=== PATIENT | female | born 1990 | race Caucasian/White ===

== ENCOUNTER 2018-09-14 23:11 | Inpatient (IN) | payer OTHER, MEDICAID ==
[2018-09-15 00:44] LABS: RUPTURE FETAL MEMBRANES POSITIVE (NEGATIVE)
[2018-09-15 00:46] LABS: ADD UMIC NO; UR ASCORBIC ACID NEGATIVE (NEGATIVE); UR BACTERIA FEW /HPF (NONE SEEN); UR BILIRUBIN (Dip) NEGATIVE (NEGATIVE); UR BLOOD (Dip) NEGATIVE (NEGATIVE); UR CLARITY CLEAR (CLEAR); UR COLOR YELLOW (YELLOW); UR GLUCOSE (Dip) NEGATIVE (NEGATIVE); UR KETONES (Dip) NEGATIVE (NEGATIVE); UR LEUKOCYTE ESTERASE (Dip) NEGATIVE Leu/ul (NEGATIVE); UR MUCUS FEW /HPF (NONE SEEN); UR NITRITE (Dip) NEGATIVE (NEGATIVE); UR RBC 0 /HPF (0-5); UR SPECIFIC GRAVITY (Dip) 1.012 (1.003-1.030); UR TOTAL PROTEIN (Dip) NEGATIVE (NEGATIVE); UR UROBILINOGEN (Dip) NEGATIVE (NEGATIVE); UR WBC 0 /HPF (0-5)
[2018-09-15] MEDS ORDERED: MAGNESIUM SULFATE 20 GM/500 ML 500 ML IV (00:54)
[2018-09-15 01:30] LABS: ADD MAN DIFF? NO
[2018-09-15 01:32] LABS: WHITE BLOOD COUNT 9.9 10^3/ul (4.8-10.8)
[2018-09-15 01:32] LABS: BASOPHILS % 0.3 % (0.0-2.0); EOSINOPHILS # 0.1 10^3/ul (0.0-0.5); EOSINOPHILS % 0.9 % (0.0-7.0); HEMATOCRIT 31.5 % (37.0-47.0); HEMOGLOBIN 11.2 g/dl (12.0-16.0); LYMPHOCYTES # 2.1 10^3/ul (0.8-2.9); LYMPHOCYTES % 20.7 % (15.0-51.0); MEAN CORPUSCULAR HEMOGLOBIN 32.8 pg (29.0-33.0); MEAN CORPUSCULAR HGB CONC 35.6 g/dl (32.0-37.0); MEAN CORPUSCULAR VOLUME 92.4 fl (82.0-101.0); MEAN PLATELET VOLUME 10.8 fl (7.4-10.4); MONOCYTE # 0.8 10^3/ul (0.3-0.9); MONOCYTES % 7.5 % (0.0-11.0); NEUTROPHIL # 6.9 10^3/ul (1.6-7.5); NEUTROPHILS % 69.8 % (39.0-77.0); PLATELET COUNT 148 10^3/UL (140-415); RED BLOOD COUNT 3.41 10^6/ul (4.20-5.40)
[2018-09-15] MEDS: BETAMET NA PHOS/AC(6 MG/ML) 2 ML INJ SYG IM (01:48)
[2018-09-15] MEDS: AZITHROMYCIN 500 MG TAB PO (01:48)
[2018-09-15 01:49] LABS: ALANINE AMINOTRANSFERASE 13 IU/L (13-69); ALBUMIN 3.4 g/dl (3.3-4.9); ALBUMIN/GLOBULIN RATIO 0.94; ALKALINE PHOSPHATASE 136 IU/L (42-121); ANION GAP 7 (5-13); ASPARTATE AMINO TRANSFERASE 14 IU/L (15-46); BILIRUBIN,INDIRECT 0.3 mg/dl (0-1.1); BILIRUBIN,TOTAL 0.3 mg/dl (0.2-1.3); BLOOD UREA NITROGEN 9 mg/dl (7-20); CARBON DIOXIDE 24 mmol/L (21-31); CHLORIDE 109 mmol/L (97-110); CREATININE 0.52 mg/dl (0.44-1.00); Estimated GFR > 60 mL/min (>60); GLUCOSE 99 mg/dl (70-220); POTASSIUM 3.7 mmol/L (3.5-5.1); SODIUM 140 mmol/L (135-144)
[2018-09-15] MEDS: AMPICILLIN 2 GM/NS (PMX) 100 ML IV (02:01)
[2018-09-15] MEDS: LACTATED RINGER'S 1,000 ML IV ×2 (02:02→15:16)
[2018-09-15] MEDS: MAGNESIUM SULFATE 4 GM/100 ML 100 ML IV (02:03)
[2018-09-15 02:06] LABS: CALCIUM 8.7 mg/dl (8.4-10.2)
[2018-09-15] MEDS: MAGNESIUM SULFATE 20 GM/500 ML 500 ML IV ×3 (02:29→20:55)
[2018-09-15] MEDS: AMPICILLIN 1 GM/NS (PMX) 50 ML IV ×5 (06:00→21:58)
[2018-09-15 07:10] LABS: MAGNESIUM 4.4 mg/dl (1.7-2.5)
[2018-09-15] MEDS: PRENATAL VITAMIN PO (09:16)
[2018-09-15] MEDS: ACETAMINOPHEN 325 MG TAB PO ×4 (09:16→21:58)
[2018-09-15] MEDS: AZITHROMYCIN 250 MG TAB PO (09:22)
[2018-09-15 18:33] LABS: MAGNESIUM 5.3 mg/dl (1.7-2.5)
[2018-09-16 01:08] LABS: MAGNESIUM 5.3 mg/dl (1.7-2.5)
[2018-09-16] MEDS: BETAMET NA PHOS/AC(6 MG/ML) 2 ML INJ SYG IM (01:49)
[2018-09-16] MEDS: AMPICILLIN 1 GM/NS (PMX) 50 ML IV ×6 (01:49→21:30)
[2018-09-16] MEDS: LACTATED RINGER'S 1,000 ML IV ×2 (04:13→17:46)
[2018-09-16] MEDS: MAGNESIUM SULFATE 20 GM/500 ML 500 ML IV (06:54)
[2018-09-16] MEDS: PRENATAL VITAMIN PO (10:17)
[2018-09-16] MEDS: AZITHROMYCIN 250 MG TAB PO (10:34)
[2018-09-17] MEDS: AMPICILLIN 1 GM/NS (PMX) 50 ML IV ×6 (01:46→21:03)
[2018-09-17] MEDS: LACTATED RINGER'S 1,000 ML IV ×3 (04:28→23:03)
[2018-09-17] MEDS: PRENATAL VITAMIN PO (09:06)
[2018-09-17] MEDS: AZITHROMYCIN 250 MG TAB PO (09:26)
[2018-09-18] MEDS: AMPICILLIN 1 GM/NS (PMX) 50 ML IV ×6 (00:55→21:19)
[2018-09-18] MEDS: PRENATAL VITAMIN PO (08:05)
[2018-09-18] MEDS: LACTATED RINGER'S 1,000 ML IV ×2 (09:31→17:26)
[2018-09-18 10:05] LABS: ADD MAN DIFF? NO
[2018-09-18 10:10] LABS: BASOPHILS % 0.3 % (0.0-2.0); EOSINOPHILS # 0.1 10^3/ul (0.0-0.5); EOSINOPHILS % 0.6 % (0.0-7.0); HEMOGLOBIN 11.7 g/dl (12.0-16.0); LYMPHOCYTES # 2.4 10^3/ul (0.8-2.9); LYMPHOCYTES % 26.2 % (15.0-51.0); MEAN CORPUSCULAR HEMOGLOBIN 32.1 pg (29.0-33.0); MEAN CORPUSCULAR HGB CONC 33.4 g/dl (32.0-37.0); MEAN CORPUSCULAR VOLUME 95.9 fl (82.0-101.0); MEAN PLATELET VOLUME 11.1 fl (7.4-10.4); MONOCYTE # 0.5 10^3/ul (0.3-0.9); MONOCYTES % 5.4 % (0.0-11.0); NEUTROPHIL # 6.1 10^3/ul (1.6-7.5); PLATELET COUNT 152 10^3/UL (140-415); RED BLOOD COUNT 3.65 10^6/ul (4.20-5.40); RED CELL DISTRIBUTION WIDTH 13.3 % (11.5-14.5)
[2018-09-18 10:10] LABS: WHITE BLOOD COUNT 9.3 10^3/ul (4.8-10.8)
[2018-09-18] MEDS: AZITHROMYCIN 250 MG TAB PO (10:10)
[2018-09-19] MEDS: AMPICILLIN 1 GM/NS (PMX) 50 ML IV ×6 (00:56→21:13)
[2018-09-19] MEDS: LACTATED RINGER'S 1,000 ML IV ×2 (02:13→10:02)
[2018-09-19] MEDS: PRENATAL VITAMIN PO (08:59)
[2018-09-19] MEDS: AZITHROMYCIN 250 MG TAB PO (10:02)
[2018-09-20] MEDS: AMPICILLIN 1 GM/NS (PMX) 50 ML IV ×6 (01:06→20:34)
[2018-09-20] MEDS: LACTATED RINGER'S 1,000 ML IV ×5 (03:27→18:31)
[2018-09-20] MEDS: PRENATAL VITAMIN PO (09:08)
[2018-09-20] MEDS: AZITHROMYCIN 250 MG TAB PO (09:08)
[2018-09-20] MEDS ORDERED: CARBOPROST 250 MCG INJ IM (10:30)
[2018-09-20] MEDS ORDERED: METHYLERGONOVINE 0.2 MG INJ IM (10:30)
[2018-09-20] MEDS ORDERED: OXYTOCIN 30 UNITS/LR 500 ML IV (10:30)
[2018-09-20] MEDS ORDERED: MISOPROSTOL 200 MCG TAB PR ×2 (10:30→19:00)
[2018-09-20 11:08] LABS: ADD MAN DIFF? NO
[2018-09-20 11:11] LABS: BASOPHILS % 0.2 % (0.0-2.0); EOSINOPHILS # 0.1 10^3/ul (0.0-0.5); EOSINOPHILS % 0.6 % (0.0-7.0); HEMATOCRIT 32.8 % (37.0-47.0); HEMOGLOBIN 11.4 g/dl (12.0-16.0); LYMPHOCYTES # 1.8 10^3/ul (0.8-2.9); LYMPHOCYTES % 11.4 % (15.0-51.0); MEAN CORPUSCULAR HEMOGLOBIN 32.7 pg (29.0-33.0); MEAN CORPUSCULAR HGB CONC 34.8 g/dl (32.0-37.0); MEAN PLATELET VOLUME 10.7 fl (7.4-10.4); MONOCYTE # 1.2 10^3/ul (0.3-0.9); MONOCYTES % 7.4 % (0.0-11.0); NEUTROPHIL # 12.7 10^3/ul (1.6-7.5); NEUTROPHILS % 79.2 % (39.0-77.0); PLATELET COUNT 144 10^3/UL (140-415); RED BLOOD COUNT 3.49 10^6/ul (4.20-5.40); RED CELL DISTRIBUTION WIDTH 13.1 % (11.5-14.5)
[2018-09-20 11:32] LABS: INR 0.92; PROTIME 12.5 Sec (11.9-14.9)
[2018-09-20 11:33] LABS: PARTIAL THROMBOPLASTIN TIME 26.9 Sec (23.0-35.0)
[2018-09-20 12:11] LABS: HEPATITIS B SURFACE ANTIGEN NEGATIVE (NEGATIVE)
[2018-09-20 15:23] LABS: RAPID PLASMA REAGIN NONREACTIVE (NR)
[2018-09-20] MEDS: CITRIC ACID/NA CITRATE 30 ML CUP PO (16:04)
[2018-09-20] MEDS: ONDANSETRON 4 MG INJ IV (16:04)
[2018-09-20] MEDS ORDERED: PHENYLephrine (100 MCG/ML) 10ML SYG (17:20)
[2018-09-20] MEDS ORDERED: OXYTOCIN 10 UNIT INJ (17:20)
[2018-09-20] MEDS ORDERED: morphine SULFATE/PF (10 MG/10 ML) INJ (17:20)
[2018-09-20] MEDS ORDERED: OXYTOCIN 30 UNITS/LR 500 ML BAG IV (17:20)
[2018-09-20] MEDS ORDERED: NALBUPHINE HCL (10 MG/1 ML) INJ IV (17:30)
[2018-09-20] MEDS ORDERED: morphine 2 MG INJ IV ×2 (17:30)
[2018-09-20] MEDS ORDERED: ACETAMINOPHEN 500 MG TAB PO (17:30)
[2018-09-20] MEDS ORDERED: ALBUMIN HUMAN 5% 250 ML IV (17:30)
[2018-09-20] MEDS ORDERED: OXYCODONE/ACETAMINOPHEN (5/325) TAB PO ×3 (17:30→19:00)
[2018-09-20] MEDS ORDERED: EPHEDrine 25 MG/5 ML SYG IV (17:30)
[2018-09-20] MEDS ORDERED: HYDROmorphONE 1 MG/5 ML IV SYRINGE IV ×2 (17:30)
[2018-09-20] MEDS ORDERED: NALOXONE (0.4 MG/ML) INJ IV (17:30)
[2018-09-20] MEDS ORDERED: DIPHENHYDRAMINE 50 MG INJ IV ×2 (17:30)
[2018-09-20] MEDS ORDERED: MEPERIDINE 25 MG INJ IV (17:30)
[2018-09-20] MEDS ORDERED: FENTAnyl 50 MCG/ML VIAL IV ×2 (17:30)
[2018-09-20] MEDS ORDERED: ONDANSETRON 4 MG INJ IV ×2 (17:30)
[2018-09-20] MEDS ORDERED: METOCLOPRAMIDE 10 MG INJ IV (17:30)
[2018-09-20] MEDS ORDERED: HYDROmorphONE 0.5 MG/0.5 ML SYG IV ×2 (17:30)
[2018-09-20] MEDS ORDERED: DEXAMETHASONE 4 MG/ML 1 ML INJ (17:43)
[2018-09-20] MEDS ORDERED: METOCLOPRAMIDE 10 MG INJ (17:43)
[2018-09-20] MEDS ORDERED: KETOROLAC 30 MG INJ (17:44)
[2018-09-20] MEDS ORDERED: FENTAnyl 50 MCG/ML VIAL (17:55)
[2018-09-20] MEDS ORDERED: NA PHOSPHATE/BIPHOS 133 ML ENEMA PR (19:00)
[2018-09-20] MEDS ORDERED: LANOLIN HPA 1 PKT TOP (19:00)
[2018-09-20] MEDS: CEFAZOLIN 2 GM/50 ML (PMX) 50 ML IVPB (19:20)
[2018-09-20] MEDS: OXYTOCIN 30 UNITS/LR 500 ML IV (19:28)
[2018-09-20] MEDS: SENNA/DOCUSATE NA (8.6MG/50MG) TAB PO (21:00)
[2018-09-21] MEDS: LACTATED RINGER'S 1,000 ML IV (01:35)
[2018-09-21] MEDS: IBUPROFEN 600 MG TAB PO ×5 (06:00→23:45)
[2018-09-21 07:39] LABS: ADD MAN DIFF? NO
[2018-09-21 07:41] LABS: WHITE BLOOD COUNT 18.1 10^3/ul (4.8-10.8)
[2018-09-21 07:41] LABS: BASOPHILS % 0.2 % (0.0-2.0); EOSINOPHILS % 0.2 % (0.0-7.0); HEMATOCRIT 25.6 % (37.0-47.0); HEMOGLOBIN 8.9 g/dl (12.0-16.0); LYMPHOCYTES # 2.4 10^3/ul (0.8-2.9); LYMPHOCYTES % 13.2 % (15.0-51.0); MEAN CORPUSCULAR HEMOGLOBIN 32.7 pg (29.0-33.0); MEAN CORPUSCULAR HGB CONC 34.8 g/dl (32.0-37.0); MEAN CORPUSCULAR VOLUME 94.1 fl (82.0-101.0); MEAN PLATELET VOLUME 11.1 fl (7.4-10.4); MONOCYTE # 1.2 10^3/ul (0.3-0.9); MONOCYTES % 6.6 % (0.0-11.0); NEUTROPHIL # 14.3 10^3/ul (1.6-7.5); NEUTROPHILS % 78.9 % (39.0-77.0); PLATELET COUNT 152 10^3/UL (140-415); RED BLOOD COUNT 2.72 10^6/ul (4.20-5.40); RED CELL DISTRIBUTION WIDTH 12.9 % (11.5-14.5)
[2018-09-21] MEDS: AZITHROMYCIN 250 MG TAB PO (10:52)
[2018-09-21] MEDS: PRENATAL VITAMIN PO (10:52)
[2018-09-21] MEDS: SENNA/DOCUSATE NA (8.6MG/50MG) TAB PO ×3 (10:52→23:44)
[2018-09-21] MEDS: KETOROLAC 30 MG INJ IV ×2 (11:26→17:31)
[2018-09-21] MEDS: HYDROCODONE/APAP (5/325) TAB PO (21:30)
[2018-09-22] MEDS: IBUPROFEN 600 MG TAB PO ×2 (05:44→11:45)
[2018-09-22 08:00] LABS: ADD MAN DIFF? NO
[2018-09-22 08:09] LABS: WHITE BLOOD COUNT 9.5 10^3/ul (4.8-10.8)
[2018-09-22 08:09] LABS: BASOPHILS % 0.2 % (0.0-2.0); EOSINOPHILS # 0.1 10^3/ul (0.0-0.5); EOSINOPHILS % 1.3 % (0.0-7.0); HEMATOCRIT 25.7 % (37.0-47.0); HEMOGLOBIN 8.3 g/dl (12.0-16.0); LYMPHOCYTES # 2.8 10^3/ul (0.8-2.9); MEAN CORPUSCULAR HEMOGLOBIN 31.7 pg (29.0-33.0); MEAN CORPUSCULAR HGB CONC 32.3 g/dl (32.0-37.0); MEAN CORPUSCULAR VOLUME 98.1 fl (82.0-101.0); MEAN PLATELET VOLUME 11.1 fl (7.4-10.4); MONOCYTE # 0.9 10^3/ul (0.3-0.9); MONOCYTES % 9.9 % (0.0-11.0); NEUTROPHIL # 5.4 10^3/ul (1.6-7.5); NEUTROPHILS % 57.4 % (39.0-77.0); PLATELET COUNT 127 10^3/UL (140-415); RED BLOOD COUNT 2.62 10^6/ul (4.20-5.40); RED CELL DISTRIBUTION WIDTH 13.3 % (11.5-14.5)
[2018-09-22] MEDS: AZITHROMYCIN 250 MG TAB PO (09:08)
[2018-09-22] MEDS: PRENATAL VITAMIN PO (09:08)
[2018-09-22] MEDS: SENNA/DOCUSATE NA (8.6MG/50MG) TAB PO (09:09)
[2018-09-23] MEDS ORDERED: DIPHTH/TET/ACEL PERTUSS (ADULT) 0.5 ML VIAL IM* (09:00)
[2018-09-23] MEDS ORDERED: MEASLES,MUMPS,RUBELLA VACCINE INJ SC* (09:00)
== END 2018-09-22 14:20 | disposition home or self-care (01) | DRG 783 ==
LOC: OBT 23:11 → L-D 09-20 17:41 → PP1 09-20 21:38 → OBT 09-15 00:49 → L-D 09-15 00:49
PROC: 10D00Z1 Extraction of Products of Conception, Low, Open Approach (ICD-10-PCS; principal; 2018-09-20 17:45)
PROC: 0UT70ZZ Resection of Bilateral Fallopian Tubes, Open Approach (ICD-10-PCS; 2018-09-20 17:45)
DX: O60.13X0 Preterm labor second trimester with preterm delivery third trimester, not applicable or unspecified (principal); O41.1230 Chorioamnionitis, third trimester, not applicable or unspecified; O99.02 Anemia complicating childbirth; Z3A.33 33 weeks gestation of pregnancy; Z37.0 Single live birth; Z30.2 Encounter for sterilization
CPT/HCPCS: 76815; 76817; 76818; 80053; 81003; 83735; 84112; 85025; 85610; 85730; 86592; 86850; 86900; 86901; 87086; 87340; 88302; 88307; 99464